=== PATIENT | female | born 1970 | race Hispanic/Latino ===

== ENCOUNTER 2016-06-18 14:57 | Emergency (ER) | payer OTHER ==
[~2016-06-18] VITALS: Ht 167.6 cm; Wt 116.6 kg
[~2016-06-18 14:57] MED LIST: BENTYL10 MG PO; FLEXERIL5 MG PO; Flexeril PO; IMITREX PO; LEXAPRO10 MG PO; LOTEMAX 0.200 DROP/1 OP; MOTRIN IB200 MG PO; PREMARIN0.3 MG PO; REQUIP1 MG PO; TOPAMAX50 MG PO; VITAMIN D310000 UNI1 PO; ZITHROMAX250 MG PO
[2016-06-18 16:27] LABS: HEMATOCRIT 40.6 % (36.0-46.0); MCH 28.8 PG (29.0-34.0); MCHC 32.8 G/DL (30.0-36.0); MCV 87.9 FL (83-99); MEAN PLAT.VOLUME 11.2 uM^3 (9.5-12.4); PLATELET COUNT 219 K/uL (156-360); RBC DIS.WIDTH-CV 13.2 % (11.8-14.6); RBC DIS.WIDTH-SD 42.1 % (39-53); RED BLOOD COUNT 4.62 M/uL (3.80-5.20)
[2016-06-18 16:39] LABS: CHLORIDE 111 mEq/L (99-109); SODIUM 140 mEq/L (136-147)
[2016-06-18 16:40] LABS: PROTHROMBIN TIME 10.6 (9.2-11.2)
[2016-06-18 16:41] LABS: GLUCOSE 83 mg/dL (70-99)
[2016-06-18 16:42] LABS: ANION GAP 7 MEQ/L (2-14)
[2016-06-18 16:45] LABS: GFR ESTIMATE (CALCULATED) > 59 mL/min/
[2016-06-18 16:46] LABS: UREA NITROGEN (BUN) 17 mg/dL (9-23)
[2016-06-18 20:37] VITALS: BP 117/61
== END 2016-06-18 20:38 | disposition home or self-care (01) ==
LOC: EME 14:57
PROVIDERS: Emergency Medicine
DX: R20.2 Paresthesia of skin (principal); I77.6 Arteritis, unspecified; J45.909 Unspecified asthma, uncomplicated
CPT/HCPCS: 71275; 80048; 85027; 85610; 85730; 93931; 93971; 99281; 99284